=== PATIENT | male | born 1995 | race Caucasian/White ===

== ENCOUNTER 2019-11-05 12:17 | Emergency (ER) | payer SELFPAY ==
[~2019-11-05] VITALS: Ht 180.3 cm; Wt 67.7 kg
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
--- NOTE | 2019-11-05 12:55 | RAD ---
CLAVICLE RIGHT, SHOULDER 2+V RIGHT DATE: 11/05/2019 12:31 PM INDICATION: Fall, pain COMPARISON: None. FINDINGS: Bones: There is no evidence of acute fracture or dislocation. Joints: The joint spaces are normal. The acromiohumeral distance is not narrowed. Miscellaneous: No abnormal soft tissue calcifications in the shoulder. IMPRESSION: No evidence of acute fracture. Electronically signed by: Alexis Larkin MD (11/05/2019 12:52 PM) [id number]
[2019-11-05] MEDS ORDERED: IBUP-1007 PO (13:10)
[2019-11-05 13:22] VITALS: BP 109/67
== END 2019-11-05 13:22 | disposition home or self-care (01) ==
LOC: ER 12:17
DX: M25.511 Pain in right shoulder (principal); G89.11 Acute pain due to trauma; F17.200 Nicotine dependence, unspecified, uncomplicated; W01.0XXA Fall on same level from slipping, tripping and stumbling without subsequent striking against object, initial encounter; Y93.01 Activity, walking, marching and hiking; Y92.89 Other specified places as the place of occurrence of the external cause; Y99.8 Other external cause status
CPT/HCPCS: 73000; 73030; 99284